=== PATIENT | male | born 1950 | race Caucasian/White ===

== ENCOUNTER 2017-03-08 21:40 | Inpatient (IN) | payer OTHER ==
[~2017-03-08] VITALS: Ht 195.6 cm; Wt 129.8 kg
[~2017-03-08 21:40] MED LIST: AMLO5TAB2 PO; HYDR25TA5 PO; LOSA50TA PO; NAPR220T95 PO
[2017-03-08 21:45] VITALS: BP 99/57; PULSE 90; RESP 19; TEMP 99.1; O2SAT 97
[2017-03-08] MEDS ORDERED: NALOXONE HCL 0.4 MG/ML AMP IV PRN (22:30)
[2017-03-08] MEDS ORDERED: ACETAMINOPHEN 325 MG TAB PO PRN ×2 (22:30)
[2017-03-08] MEDS ORDERED: SODIUM CHLORIDE 0.9% FLUSH 10 ML FLUSH IV FLUSH PRN (22:30)
[2017-03-08] MEDS ORDERED: ONDANSETRON HCL 4 MG/2 ML VIAL IVP PRN (22:30)
--- NOTE | 2017-03-08 22:44 | HHI.HP ---
[facility] No Primary Care Physician Admission Diagnosis Diagnoses: Chief Complaint: Black stools Travel History International Travel<30 Days: No Contact w/Intl Traveler <30 Da: No History of Present Illness The patient is a 66-year-old male with a past medical history of hypertension who is presenting to the hospital with black stools. The patient says that he has noticed his stools have been black in color over the past 5 days. He denies having this happen before. He went to work today and his coworkers were concerned about how pale he appeared. He was asked how he was feeling and he responded that he felt tired and weak. He was referred to the nurse who referred him to the hospital because he looked pale and had an elevated heart rate. The patient denies any abdominal pain. He has not had any nausea, vomiting or diarrhea. He says he chronically takes Aleve every day and quit taking it either Wednesday or when he discovered that Aleve might contribute to black stools. He says he takes Aleve for arthritis in the hands. He says he had a colonoscopy last year which was significant for diverticulosis. He reports his father has a history of a bleeding ulcer. He says his appetite has been normal. Review of Systems Except as stated in HPI: all other systems reviewed are Neg Past Family Social History Past Medical History Hypertension Gout Kidney stones Diverticulosis OA Past Surgical History Left inguinal hernia repair Allergies: Coded Allergies: No Known Allergies (Unverified , 03/08/17) Active Ordered Medications Current Medications Medications (Trade) Dose Ordered Sig/[place] Route Start Time Stop Time Status Last Admin (NS 1000 ml Inj) 1,000 ml @ 100 mls/hr Q10H IV 03/08/17 23:00 (NS Flush) 2 ml UNSCH PRN IV FLUSH 03/08/17 22:30 (NS Flush) 2 ml BID IV FLUSH 03/09/17 09:00 (Tylenol) 650 mg Q4H PRN PO 03/08/17 22:30 (Zofran Inj) 4 mg Q6H PRN IVP 03/08/17 22:30 (Tylenol) 650 mg Q6H PRN PO 03/08/17 22:30 (Narcan Inj) 0.4 mg UNSCH PRN IV 03/08/17 22:30 Pantoprazole Sodium 40 mg 40 mg Q12H IV PUSH 03/08/17 23:00 (KCl 20 Meq Premix Inj) 100 ml @ 50 mls/hr BOLUS ONCE IV 03/08/17 23:00 03/09/17 00:59 Family History His father had a bleeding ulcer Social History The patient does not smoke. He drinks one whiskey and soda nightly. He denies drug use. Physical Exam Vital Signs Vital Signs Date Time Temp Pulse Resp B/P Pulse Ox O2 Delivery O2 Flow Rate FiO2 03/08/17 21:45 99.1 90 19 99/57 97 Physical Exam GENERAL: This is a well-nourished, well-developed patient, in no apparent distress. SKIN: No rashes, ecchymoses or lesions. Cool and dry. Pale. HEAD: Atraumatic. Normocephalic. No temporal or scalp tenderness. EYES: Pupils equal round and reactive. Extraocular motions intact. No scleral icterus. No injection or drainage. ENT: Nose without bleeding, purulent drainage or septal hematoma. Throat without erythema, tonsillar hypertrophy or exudate. Uvula midline. Airway patent. NECK: Trachea midline. No JVD or lymphadenopathy. Supple, nontender, no meningeal signs. CARDIOVASCULAR: Regular rate and rhythm without murmurs, gallops, or rubs. RESPIRATORY: Clear to auscultation. Breath sounds equal bilaterally. No wheezes , rales, or rhonchi. GASTROINTESTINAL: Abdomen soft, non-tender, nondistended. No hepato-splenomegaly , or palpable masses. No guarding. MUSCULOSKELETAL: Extremities without clubbing, cyanosis. Trace pedal edema noted. NEUROLOGICAL: Awake and alert. Cranial nerves II through XII intact. Motor and sensory grossly within normal limits. Five out of 5 muscle strength in all muscle groups. Normal speech. PSYCH: Mood and affect appropriate. Assessment and Plan Assessment and Plan Acute GIB The pt had a hemoglobin of 6.1 upon presentation to [place]. He has had 5 days of black stools along with weakness, fatigue and pallor. He did not receive any blood products in [place]. He has a history of diverticulosis. He has been chronically taking Aleve for OA. Found to be Hemoccult positive. - 2 units red cells stat. - follow CBC every 6 hours. - PPI IV BID. - IVFs. - consult gastroenterology. - avoid NSAIDs. Hypokalemia The pt said he hasn't eaten much today. - replete with IV KCl and monitor. - telemetry. - check magnesium level. Acute hypovolemic hypotension The patient is normally hypertensive. Secondary to GI bleed. - IV fluids. - Hold home antihypertensives. - Red blood cells as above. Leukocytosis WBC 24.1 on presentation. UA unremarkable. May be a stress response. - Check a chest x-ray. - Blood cultures 2. - antibiotics if indicated. OA Chronic, affecting his hands. Quit taking Aleve when he discovered a contribute to black stools. - Avoid NSAIDs. - Tylenol as needed for pain. PPx: SCDs. Code Status Full. Discussed Condition With Pt, pt's family, nurse. Physician Certification 2 Midnight Certification Type: Admission for Inpatient Services Order for Inpatient Services The services are ordered in accordance with Medicare regulations or non- Medicare payer requirements, as applicable. In the case of services not specified as inpatient-only, they are appropriately provided as inpatient services in accordance with the 2-midnight benchmark. Estimated LOS (days): 2 days is the estimated time the patient will need to remain in the hospital, assuming treatment plan goals are met and no additional complications. Post-Hospital Plan: Home Josh Bergman DO March 08, 2017 22:43
[2017-03-08] MEDS ORDERED: POTASSIUM CHLOR 20 MEQ PREMIX 100 ML IV ONE (23:00)
[2017-03-08] MEDS ORDERED: SODIUM CHLOR 0.9% 1000 ML INJ 1,000 ML IV SCH (23:00)
[2017-03-08] MEDS ORDERED: PANTOPRAZOLE SODIUM 40 MG VIAL IV PUSH SCH (23:00)
[2017-03-08] MEDS: SODIUM CHLOR 0.45% 1000 ML INJ 1,000 ML IV SCH (23:08)
--- NOTE | 2017-03-08 23:17 | RADRPT ---
EXAM DATE/TIME: 03/08/2017 23:08 [facility] COMPARISON: No previous studies available for comparison. INDICATIONS : Shortness of breath. MEDICAL HISTORY : None. SURGICAL HISTORY : None. ENCOUNTER: Initial ACUITY: 1 day PAIN SCORE: 0/10 LOCATION: Bilateral chest FINDINGS: The lungs are clear without infiltrate, nodule, or mass except for minimal linear atelectasis left tash ng base and the left hemidiaphragm is slightly elevated. There is no appreciable pleural effusion fo r technique. Heart and mediastinum are unremarkable. There are old healed rib fractures in the right lower chest. CONCLUSION: Minimal atelectasis left lung base. Suzette Perla MD on March 08, 2017 at 23:15 Board Certified Radiologist. This report was verified electronically.
[2017-03-08 23:58] LABS: ANION GAP 8 MEQ/L (5-15); AST (GOT) 13 U/L (15-37); BICARBONATE 25.9 MEQ/L (21.0-32.0); BLOOD UREA NITROGEN 35 MG/DL (7-18); CHLORIDE 108 MEQ/L (98-107); GLOMERULAR FILTRATION RATE 81 ML/MIN (>89); MAGNESIUM 1.8 MG/DL (1.5-2.5); SODIUM (NA) 142 MEQ/L (136-145)
[2017-03-09] VITALS (21 sets, daily range): BP systolic 104–132; BP diastolic 54–68; PULSE 61–85; RESP 13–26; TEMP 97.1–98.6; O2SAT 96–98
[2017-03-09 00:01] LABS: ALKALINE PHOSPHATASE 37 U/L (45-117); ALT (GPT) 20 U/L (12-78); TOTAL BILIRUBIN ADULT 0.3 MG/DL (0.2-1.0)
[2017-03-09 05:49] LABS: MEAN CELL VOLUME 90.9 FL (80.0-100.0); MEAN CORPUSCULAR HEMOGLOBIN 30.4 PG (27.0-34.0); MEAN CORPUSCULAR HGB CONC 33.4 % (32.0-36.0); PLATELET COUNT 230 TH/MM3 (150-450); RED BLOOD COUNT 2.18 MIL/MM3 (4.50-5.90); RED CELL DISTRIBUTION WIDTH 14.4 % (11.6-17.2); WHITE BLOOD COUNT 15.7 TH/MM3 (4.0-11.0)
[2017-03-09 05:54] LABS: REVIEW FLAG FINAL
[2017-03-09 05:55] LABS: HEMATOCRIT 19.8 % (39.0-51.0)
[2017-03-09 06:20] LABS: BICARBONATE 25.7 MEQ/L (21.0-32.0); CALCIUM-PROTEIN CORRECTED 8.4 MG/DL (8.5-10.1); TOTAL BILIRUBIN ADULT 0.7 MG/DL (0.2-1.0)
[2017-03-09] MEDS ORDERED: MAGNESIUM SULFATE 1 GM PREMIX 100 ML IV ONE (07:30)
[2017-03-09] MEDS: POTASSIUM CHLOR 20 MEQ PREMIX 100 ML IV SCH ×2 (07:56→10:03)
[2017-03-09] MEDS: SODIUM CHLORIDE 0.9% FLUSH 10 ML FLUSH IV FLUSH SCH ×2 (07:57→21:01)
[2017-03-09] MEDS: SODIUM CHLOR 0.45% 1000 ML INJ 1,000 ML IV SCH ×2 (08:00→17:08)
--- NOTE | 2017-03-09 09:18 | HHI.PR ---
Subjective Remarks Follow-up GI bleed 03/09/17-patient seen and examined, now receiving blood transfusion 3#4. Currently nothing by mouth. BP soft. Denies any shortness of breath or chest pain. Objective Vitals Vital Signs Date Time Temp Pulse Resp B/P Pulse Ox O2 Delivery O2 Flow Rate FiO2 03/09/17 07:46 98 03/09/17 06:35 98.2 69 20 110/54 97 03/09/17 06:00 69 03/09/17 04:00 97.1 81 19 104/57 98 03/09/17 04:00 61 03/09/17 02:45 98.5 71 19 118/55 97 03/09/17 02:00 76 03/09/17 00:25 98.6 84 18 118/55 98 03/09/17 00:22 97 21 03/09/17 00:00 98.6 81 20 112/56 98 03/09/17 00:00 81 03/08/17 21:45 99.1 90 19 99/57 97 03/08/17 21:45 90 I/O 03/08/17 03/08/17 03/08/17 03/09/17 03/09/17 03/09/17 07:00 15:00 23:00 07:00 15:00 23:00 Intake Total 1963 ml Output Total 1000 ml Balance 963 ml Intake IV Total 1463 ml Packed Cells 500 ml Output Urine Total 1000 ml Result Diagram: 03/09/17 0443 03/09/17 0443 Imaging Last Impressions Chest X-Ray 03/08/17 0000 Signed Impressions: Service Date/Time: Wednesday, March 08, 2017 23:08 - CONCLUSION: Minimal atelectasis left lung base. K. Wisam Perla MD Objective Remarks GENERAL: NAD SKIN: Warm and dry. HEAD: Normocephalic. EYES: No scleral icterus. No injection or drainage. NECK: Supple, trachea midline. No JVD or lymphadenopathy. CARDIOVASCULAR: Regular rate and rhythm without murmurs, gallops, or rubs. RESPIRATORY: Breath sounds equal bilaterally. No accessory muscle use. GASTROINTESTINAL: Abdomen soft, non-tender, nondistended. MUSCULOSKELETAL: No cyanosis, or edema. BACK: Nontender without obvious deformity. No CVA tenderness. A/P Problem List: (1) GI bleeding ICD Code: K92.2 Status: Acute (2) Normochromic normocytic anemia ICD Code: D64.9 Status: Acute (3) Anemia due to blood loss, acute ICD Code: D62 Status: Acute (4) Hypotension due to blood loss ICD Code: I95.89 Status: Acute (5) Leukocytosis ICD Code: D72.829 Status: Acute Assessment and Plan 66-year-old man with GI bleed Normochromic normocytic anemia Anemia due to blood loss, acute Gastroenterology consultation pending for evaluation for panendoscopy Continue with transfusion of packed red blood cell and monitor H&H as well as platelets Start Protonix drip instead Avoid NSAID Hypovolemic Hypotension due to blood loss BP improving Continue with blood transfusions as in above Continue with IV fluid hydration as well Hold all oral hypertensive medications Leukocytosis Stress reactive secondary to above blood loss Hypokalemia Replace electrolyte and monitor OA Chronic, affecting his hands. Quit taking Aleve when he discovered a contribute to black stools. - Avoid NSAIDs. - Tylenol as needed for pain. DVT prophylaxis: Chemical anti-prophylaxis is contraindicated, bilateral SCDs GI prophylaxis: PPI Total critical care time spent over 35 minutes Alfred Zapata MD March 09, 2017 09:17
[2017-03-09] MEDS: PANTOPRAZOLE INJ 80 MG in SODIUM CHLORIDE 0.9% INJ 100 ML IV SCH ×2 (10:00→19:23)
--- NOTE | 2017-03-09 10:44 | PD.CONS ---
HPI History of Present Illness This is a 66 year old male who presented to the emergency room and [facility] for melena and severe generalized weakness. He has a history of osteoarthritis and takes 2 Aleve every morning. About 5-6 days ago he started having black tarry stools. He denies any nausea, vomiting, heartburn, reflux, abdominal pain, hematochezia, or abnormal weight loss. She noticed on Wednesday that he was feeling more tired than usual. Yesterday he reports his skin color was very pale and that he had severe generalized weakness with shortness of breath on minimal exertion. He reports that this improved with rest. He went to the ER and was found to have severe anemia with an H&H of 6.6/19.8. He was transferred to [facility] and transfused 3 units of packed red blood cells. He is currently in the ISC unit, but medically stable at this time. He denies any history of peptic ulcer disease. He has never had an upper endoscopy. He did have a colonoscopy in May, at which time he was told that he had diverticulosis but no colon polyps. He does not recall the physician's name. There is no family history of esophageal, gastric, or colorectal cancer. He does drink 1-2 whiskeys nightly. (Mary Lou Harman) PFSH Past Medical History Hypertension Gout Kidney stones Diverticulosis OA Past Surgical History Left inguinal hernia repair Lithotripsy Colonoscopy (Mary Lou Harman) Coded Allergies: No Known Allergies (Unverified , 03/08/17) Medications Allergies Coded Allergies Type Severity Reaction Last Updated Verified No Known Allergies 03/08/17 No Active Scripts Medications Dose Route/Sig Days Date Category Aleve (Naproxen Sodium) 220 Mg Tab 220 Mg PO DAILY PRN 03/08/17 Reported Hydrochlorothiazide 25 Mg Tab 25 Mg PO DAILY 03/08/17 Reported Losartan (Losartan Potassium) 50 Mg Tab 50 Mg PO DAILY 03/08/17 Reported Amlodipine (Amlodipine Besylate) 5 Mg Tab 5 Mg PO DAILY 03/08/17 Reported Family History Father had tumor removed from his neck, htn, CVA. Mother had recurrent diverticulitis, htn Social History The patient does not smoke. He drinks 1-2 whiskey and soda nightly. He denies drug use. (Mary Lou Harman) Review of Systems Constitutional: COMPLAINS OF: Diaphoretic episodes, Fatigue, DENIES: Fever, Weight loss, Chills, Change in appetite Respiratory: COMPLAINS OF: Shortness of breath, DENIES: Cough Cardiovascular: DENIES: Chest pain Gastrointestinal: COMPLAINS OF: Black stools, DENIES: Abdominal pain, Bloody stools, Constipation, Diarrhea, Nausea, Vomiting, Anorexia, Swelling of Abdomen , Heartburn, Hematemesis Musculoskeletal: DENIES: Joint pain Integumentary: DENIES: Abnormal pigmentation Hematologic/lymphatic: DENIES: Bruising Immunologic/allergic: DENIES: Eczema Neurologic: DENIES: Headache Psychiatric: DENIES: Confusion (Mary Lou Harman) GI Exam Vitals I&O Vital Signs Date Time Temp Pulse Resp B/P Pulse Ox O2 Delivery O2 Flow Rate FiO2 03/09/17 08:35 98.0 80 24 113/62 98 03/09/17 08:20 98.0 78 22 126/59 98 03/09/17 07:46 98 03/09/17 07:00 98 Room Air 03/09/17 06:35 98.2 69 20 110/54 97 03/09/17 06:00 69 03/09/17 04:00 97.1 81 19 104/57 98 03/09/17 04:00 61 03/09/17 02:45 98.5 71 19 118/55 97 03/09/17 02:00 76 03/09/17 00:25 98.6 84 18 118/55 98 03/09/17 00:22 97 21 03/09/17 00:00 98.6 81 20 112/56 98 03/09/17 00:00 81 03/08/17 21:45 99.1 90 19 99/57 97 03/08/17 21:45 90 I/O 03/08/17 03/08/17 03/08/17 03/09/17 03/09/17 03/09/17 07:00 15:00 23:00 07:00 15:00 23:00 Intake Total 1963 ml Output Total 1000 ml Balance 963 ml Intake IV Total 1463 ml Packed Cells 500 ml Output Urine Total 1000 ml Imaging Last Impressions Chest X-Ray 03/08/17 0000 Signed Impressions: Service Date/Time: Wednesday, March 08, 2017 23:08 - CONCLUSION: Minimal atelectasis left lung base. Suzette Perla MD Laboratory Test 03/08/17 03/09/17 03/09/17 03/09/17 23: 00:00 01:00 04:43 Sodium Level 142 MEQ/L 142 MEQ/L Potassium Level 3.0 MEQ/L 3.0 MEQ/L Chloride Level 108 MEQ/L 108 MEQ/L Carbon Dioxide Level 25.9 MEQ/L 25.7 MEQ/L Anion Gap 8 MEQ/L 8 MEQ/L Blood Urea Nitrogen 35 MG/DL 29 MG/DL Creatinine 0.94 MG/DL 0.98 MG/DL Estimat Glomerular Filtration 81 ML/MIN 77 ML/MIN Rate Random Glucose 112 MG/DL 105 MG/DL Calcium Level 7.5 MG/DL 7.2 MG/DL Magnesium Level 1.8 MG/DL Total Bilirubin 0.3 MG/DL 0.7 MG/DL Aspartate Amino Transf 13 U/L 14 U/L (AST/SGOT) Alanine Aminotransferase 20 U/L 21 U/L (ALT/SGPT) Alkaline Phosphatase 37 U/L 40 U/L Total Protein 4.9 GM/DL 4.9 GM/DL Albumin 2.3 GM/DL 2.4 GM/DL Nasal Screen MRSA (PCR) MRSA NOT DETECTED Blood Type A POSITIVE Crossmatch Leukocyte-Reduced Red Blood Cells Blood Bank Comment White Blood Count 15.7 TH/MM3 Red Blood Count 2.18 MIL/MM3 Hemoglobin 6.6 GM/DL Hematocrit 19.8 % Mean Corpuscular Volume 90.9 FL Mean Corpuscular Hemoglobin 30.4 PG Mean Corpuscular Hemoglobin 33.4 % Concent Red Cell Distribution Width 14.4 % Platelet Count 230 TH/MM3 Mean Platelet Volume 8.7 FL Protein Corrected Calcium 8.4 MG/DL Test 03/09/17 05:59 Crossmatch Leukocyte-Reduced Red Blood Cells Blood Bank Comment Date/Time Procedure Status Source Growth 03/09/17 04:54 Aerobic Blood Culture Received Blood Peripheral Pending 03/09/17 04:54 Anaerobic Blood Culture Received Blood Peripheral Pending Physical Examination HEENT: Normocephalic; atraumatic; no jaundice. CHEST: CTA CARDIAC: RRR ABDOMEN: Soft, nondistended, nontender; no hepatosplenomegaly; bowel sounds are present in all four quadrants. EXTREMITIES: No clubbing, cyanosis, or edema. SKIN: Normal; no rash; no jaundice. SMOKE INSPECTOR: No focal deficits; alert and oriented times three. (Mary Lou Harman) Assessment and Plan Plan ASSESSMENT: - Upper GIB, Melena. (+) NSAID use, taking 2 Aleve daily for arthritic pain. 1 -2 ETOH drinks per night. No hx of PUD. 5-6 day hx of black tarry stools with no other GI symptoms, but generalized weakness/ SOB yesterday. Never had an EGD. Last colonoscopy was in May (diverticulosis, no polyps, does not recall the doctor's name). HH 6.6/19.8. S/P 3 units of PRBC. Rpt. HH pending. NPO. Protonix Gtt. - Severe anemia, acute blood loss. HH 6.6/19.8. S/P 3 units of PRBC. Rpt. HH pending. Protonix Gtt. - HTN, OA, per primary PLAN: - Plan for egd today - Obtain consents - NPO - Protonix Gtt - H/H now - CBC in am - No NSAIDS - Further recommendations to follow based on results of above - Pt seen and examined by Dr. Herzog and myself and this note is written on his behalf (Mary Lou Harman) Physician Comments Patient seen and examined Agree with above Continue with current supportive care Monitor labs We will proceed with an EGD next Further recommendations shall depend on his findings (Imer Herzog MD) Mary Lou Harman March 09, 2017 10:44 Imer Herzog MD March 09, 2017 13:32
[2017-03-09 12:50] LABS: HEMATOCRIT 23.5 % (39.0-51.0); MEAN CELL VOLUME 89.8 FL (80.0-100.0); MEAN CORPUSCULAR HEMOGLOBIN 31.2 PG (27.0-34.0); MEAN CORPUSCULAR HGB CONC 34.8 % (32.0-36.0); PLATELET COUNT 213 TH/MM3 (150-450); RED BLOOD COUNT 2.62 MIL/MM3 (4.50-5.90); RED CELL DISTRIBUTION WIDTH 14.4 % (11.6-17.2); WHITE BLOOD COUNT 14.5 TH/MM3 (4.0-11.0)
[2017-03-09 12:59] LABS: REVIEW FLAG FINAL
[2017-03-09] MEDS ORDERED: PROPOFOL 200 MG/20 ML AMP IV ONE (13:16)
--- NOTE | 2017-03-09 13:35 | PD.PROCEDR ---
GI Procedure REFERRING PHYSICIAN ESTHER PROCEDURE PERFORMED EGD INDICATION FOR PROCEDURE Melena, anemia PROCEDURE: The procedure, risks and benefits were discussed with Mr. Segovia and informed consent was obtained. Anesthesia sedated him with Diprivan. He was placed in the left lateral decubitus position. EGD: The Pentax videoscope was introduced through the oropharynx and advanced to the second portion of the duodenum under direct visualization. Retroflexion was performed in the stomach. FINDINGS: The esophagus this was normal The stomach this was normal The duodenum there was some mild patchy erythema in the duodenal bulb but no ulcerations or erosions and the rest of the duodenum was unremarkable ESTIMATED BLOOD LOSS: None SPECIMENS REMOVED: None COMPLICATIONS: None IMPRESSION: Mild duodenitis Otherwise unremarkable EGD PLAN: Continue with current supportive care Plan for colonoscopy tomorrow Imer Herzog MD March 09, 2017 13:35
[2017-03-09] MEDS ORDERED: PEG (High)/E-LYTE SOLN 4000 ML BTL PO ONE (13:45)
[2017-03-09 17:33] LABS: HEMATOCRIT 23.8 % (39.0-51.0); MEAN CELL VOLUME 90.9 FL (80.0-100.0); MEAN CORPUSCULAR HEMOGLOBIN 30.5 PG (27.0-34.0); MEAN CORPUSCULAR HGB CONC 33.5 % (32.0-36.0); PLATELET COUNT 223 TH/MM3 (150-450); RED BLOOD COUNT 2.62 MIL/MM3 (4.50-5.90); RED CELL DISTRIBUTION WIDTH 14.4 % (11.6-17.2); REVIEW FLAG FINAL; WHITE BLOOD COUNT 14.2 TH/MM3 (4.0-11.0)
[2017-03-09 22:47] LABS: HEMATOCRIT 25.9 % (39.0-51.0); MEAN CELL VOLUME 91.6 FL (80.0-100.0); MEAN CORPUSCULAR HGB CONC 33.8 % (32.0-36.0); PLATELET COUNT 244 TH/MM3 (150-450); RED BLOOD COUNT 2.83 MIL/MM3 (4.50-5.90); RED CELL DISTRIBUTION WIDTH 14.7 % (11.6-17.2); REVIEW FLAG FINAL; WHITE BLOOD COUNT 14.7 TH/MM3 (4.0-11.0)
[2017-03-10] VITALS (9 sets, daily range): BP systolic 127–146; BP diastolic 65–77; PULSE 70–84; RESP 19–23; TEMP 98.1–98.3; O2SAT 93–98
[2017-03-10 04:18] LABS: MEAN CELL VOLUME 90.6 FL (80.0-100.0); MEAN CORPUSCULAR HEMOGLOBIN 31.7 PG (27.0-34.0); PLATELET COUNT 217 TH/MM3 (150-450); RED BLOOD COUNT 2.54 MIL/MM3 (4.50-5.90); RED CELL DISTRIBUTION WIDTH 14.8 % (11.6-17.2); REVIEW FLAG FINAL; WHITE BLOOD COUNT 13.4 TH/MM3 (4.0-11.0)
[2017-03-10] MEDS: SODIUM CHLOR 0.45% 1000 ML INJ 1,000 ML IV SCH ×2 (04:34→13:40)
[2017-03-10] MEDS: PANTOPRAZOLE INJ 80 MG in SODIUM CHLORIDE 0.9% INJ 100 ML IV SCH (04:35)
[2017-03-10 04:56] LABS: POTASSIUM 3.3 MEQ/L (3.5-5.1)
[2017-03-10] MEDS: SODIUM CHLORIDE 0.9% FLUSH 10 ML FLUSH IV FLUSH SCH (08:15)
--- NOTE | 2017-03-10 09:17 | HHI.PR ---
Subjective Remarks Follow-up GI bleed 03/09/17-patient seen and examined, now receiving blood transfusion 3#4. Currently nothing by mouth. BP soft. Denies any shortness of breath or chest pain. 03/10/17-patient seen and examined, status post EGD with finding of duodenitis. Currently nothing by mouth pending colonoscopy. H&H stable and patient denies any GI bleed. Objective Vitals Vital Signs Date Time Temp Pulse Resp B/P Pulse Ox O2 Delivery O2 Flow Rate FiO2 03/10/17 08:07 98 03/10/17 08:00 74 03/10/17 08:00 98.3 72 19 136/66 98 03/10/17 07:00 98 Room Air 03/10/17 06:00 70 03/10/17 04:00 98.2 76 20 127/65 97 03/10/17 04:00 76 03/10/17 02:00 77 03/10/17 00:00 81 03/10/17 00:00 98.1 81 23 128/67 96 03/09/17 22:00 84 03/09/17 21:11 97 03/09/17 20:00 72 03/09/17 20:00 98.3 72 22 111/67 96 03/09/17 19:00 97 Room Air 03/09/17 18:20 75 03/09/17 16:08 85 03/09/17 16:08 97.7 85 13 132/68 98 03/09/17 14:09 71 03/09/17 12:12 98.2 72 24 127/58 97 03/09/17 12:12 72 03/09/17 11:00 71 03/09/17 10:00 73 I/O 03/09/17 03/09/17 03/09/17 03/10/17 03/10/17 03/10/17 07:00 15:00 23:00 07:00 15:00 23:00 Intake Total 1963 ml 1518 ml 3404 ml 835 ml Output Total 1000 ml 825 ml 1400 ml Balance 963 ml 693 ml 2004 ml 835 ml Intake Oral 2442 ml IV Total 1463 ml 918 ml 962 ml 835 ml Packed Cells 500 ml 600 ml Output Urine Total 1000 ml 825 ml 1400 ml # Voids 6 # Bowel Movements 2 6 Result Diagram: 03/10/17 0353 03/10/17 0353 Imaging Last Impressions Chest X-Ray 03/08/17 0000 Signed Impressions: Service Date/Time: Wednesday, March 08, 2017 23:08 - CONCLUSION: Minimal atelectasis left lung base. KElizabeth Perla MD Objective Remarks GENERAL: NAD SKIN: Warm and dry. HEAD: Normocephalic. EYES: No scleral icterus. No injection or drainage. NECK: Supple, trachea midline. No JVD or lymphadenopathy. CARDIOVASCULAR: Regular rate and rhythm without murmurs, gallops, or rubs. RESPIRATORY: Breath sounds equal bilaterally. No accessory muscle use. GASTROINTESTINAL: Abdomen soft, non-tender, nondistended. MUSCULOSKELETAL: No cyanosis, or edema. BACK: Nontender without obvious deformity. No CVA tenderness. A/P Problem List: (1) GI bleeding ICD Code: K92.2 Status: Acute (2) Normochromic normocytic anemia ICD Code: D64.9 Status: Acute (3) Anemia due to blood loss, acute ICD Code: D62 Status: Acute (4) Hypotension due to blood loss ICD Code: I95.89 Status: Acute (5) Leukocytosis ICD Code: D72.829 Status: Acute Assessment and Plan 66-year-old man with GI bleed Normochromic normocytic anemia Anemia due to blood loss, acute Gastroenterology ff Status post EGD 03/09/17 with finding of duodenitis Plan for colonoscopy today 03/10/17 s/p 4 units packed red blood cell transfused and monitor H&H Continue Protonix drip Avoid NSAID Hypovolemic Hypotension due to blood loss-resolved Transfused 4 units packed red blood cell on 03/09/17 Continue with IV fluid hydration as well Hold all oral hypertensive medications Leukocytosis Stress reactive secondary to above blood loss Hypokalemia Replace electrolyte and monitor OA Chronic, affecting his hands. Quit taking Aleve when he discovered a contribute to black stools. - Avoid NSAIDs. - Tylenol as needed for pain. DVT prophylaxis: Chemical anti-prophylaxis is contraindicated, bilateral SCDs GI prophylaxis: PPI Transfer to [facility] and likely discharge home if colonoscopy negative Alfred Zapata MD March 10, 2017 09:17
[2017-03-10] MEDS ORDERED: PROPOFOL 200 MG/20 ML AMP IV ONE (10:16)
--- NOTE | 2017-03-10 10:42 | PD.PROCEDR ---
GI Procedure REFERRING PHYSICIAN tangela PROCEDURE PERFORMED Colonoscopy INDICATION FOR PROCEDURE Anemia possible GI bleed PROCEDURE: The procedure, risks and benefits were discussed with Mr. Segovia and informed consent was obtained. Anesthesia sedated him with Diprivan. He was placed in the left lateral decubitus position. Colonoscopy: The Pentax videoscope was introduced through the rectum and advanced to cecum where the ileocecal valve and appendiceal orifice were identified. Retroflexion was performed in the rectum. Colonic prep was fair FINDINGS: Colonic withdrawal time greater than 6 minutes as the scope was slowly withdrawn colonic mucosa was carefully inspected this was noted to be unremarkable and within normal limits the whole way through the patient was noted to have mild diverticulosis of the sigmoid region retroflexion in the rectum and rectal examination were unremarkable ESTIMATED BLOOD LOSS: None SPECIMENS REMOVED: None COMPLICATIONS: None IMPRESSION: Colonic diverticulosis Otherwise unremarkable colonoscopy PLAN: High-fiber diet Recommend small bowel follow-through if negative then patient will require capsule endoscopy Continue present supportive care Imer Herzog MD March 10, 2017 10:42
[2017-03-10] MEDS ORDERED: MAGNESIUM CITRATE SOLN 300 ML BTL PO ONE ×2 (12:00→18:00)
[2017-03-10] MEDS ORDERED: POTASSIUM CHLORIDE 20 MEQ CONTROLLED RELEASE TAB PO ONE (13:00)
--- NOTE | 2017-03-10 13:24 | RADRPT ---
EXAM DATE/TIME: 03/10/2017 11:12 [facility] COMPARISON: No previous studies available for comparison. INDICATIONS : Anemia. FLUORO TIME: 1.1 minutes IMAGE COUNT: 24 CONTRAST: Entero Vu 24% Barium Sulfate (24% w/v, 20% w/w) IMAGING TIME(S): 15 min, 30 min, 45 min, 1 hr, 1.5 hrs MEDICAL HISTORY : None. SURGICAL HISTORY : Inguinal hernia repair. ENCOUNTER: Initial ACUITY: 2 days PAIN SCORE: 0/10 LOCATION: Bilateral abdomen. FINDINGS: Preliminary film demonstrates a nonobstructive bowel gas pattern. A 1.6 cm calculus is suspected in t he region of the left kidney.. The stomach is grossly unremarkable. Examination of the small bowel demonstrates normal mucosal pattern involving the jejunum and ileum. Scattered jejunal diverticuli are present. There is no evidence of mass or obstruction. No intralumi nal filling defects are identified. Small bowel transit time is normal at 60 minutes. Fluoroscopy o f the abdomen and terminal ileum demonstrates no abnormality. CONCLUSION: A few jejunal diverticuli are noted otherwise unremarkable small bowel series. Doug Morales MD on March 10, 2017 at 13:20 Board Certified Radiologist. This report was verified electronically.
[2017-03-10] MEDS: BISACODYL EC 5 MG TABEC PO SCH (13:43)
[2017-03-10] MEDS ORDERED: PANTOPRAZOLE INJ 80 MG in SODIUM CHLORIDE 0.9% INJ 100 ML IV SCH (14:00)
[2017-03-10] MEDS ORDERED: PROT40TA PO (17:03)
--- NOTE | 2017-03-10 17:05 | HHI.PR ---
Addendum to Inpatient Note Addendum Reason: Additional Documentation Additional Information He had colonoscopy with finding of colonic diverticulosis otherwise unremarkable. He had follow-up small bowel follow-through with finding of a few jejunal diverticuli otherwise unremarkable therefore patient will be discharged home on Protonix 40 mg daily Alfred Zapata MD March 10, 2017 17:05
--- NOTE | 2017-03-10 17:07 | HHI.DS ---
Discharge Summary Admission Date March 08, 2017 at 21:45 Discharge Date: March 10, 2017 Admitting Diagnosis (1) GI bleeding ICD Code: K92.2 (2) Normochromic normocytic anemia ICD Code: D64.9 (3) Anemia due to blood loss, acute ICD Code: D62 (4) Hypotension due to blood loss ICD Code: I95.89 (5) Leukocytosis ICD Code: D72.829 Procedures none Brief History - From Admission The patient is a 66-year-old male with a past medical history of hypertension who is presenting to the hospital with black stools. The patient says that he has noticed his stools have been black in color over the past 5 days. He denies having this happen before. He went to work today and his coworkers were concerned about how pale he appeared. He was asked how he was feeling and he responded that he felt tired and weak. He was referred to the nurse who referred him to the hospital because he looked pale and had an elevated heart rate. The patient denies any abdominal pain. He has not had any nausea, vomiting or diarrhea. He says he chronically takes Aleve every day and quit taking it either Wednesday or when he discovered that Aleve might contribute to black stools. He says he takes Aleve for arthritis in the hands. He says he had a colonoscopy last year which was significant for diverticulosis. He reports his father has a history of a bleeding ulcer. He says his appetite has been normal. CBC/BMP: 03/10/17 0353 03/10/17 0353 Significant Findings Laboratory Tests Test 03/08/17 03/09/17 03/09/17 03/09/17 23:17 04:43 12:21 17:21 Potassium Level 3.0 MEQ/L 3.0 MEQ/L (3.5-5.1) (3.5-5.1) Chloride Level 108 MEQ/L 108 MEQ/L (98-107) (98-107) Blood Urea Nitrogen 35 MG/DL (7-18) 29 MG/DL (7-18) Estimat Glomerular Filtration 81 ML/MIN (>89) 77 ML/MIN (>89) Rate Random Glucose 112 MG/DL (74-106) Calcium Level 7.5 MG/DL 7.2 MG/DL (8.5-10.1) (8.5-10.1) Aspartate Amino Transf 13 U/L (15-37) 14 U/L (15-37) (AST/SGOT) Alkaline Phosphatase 37 U/L (45-117) 40 U/L (45-117) Total Protein 4.9 GM/DL 4.9 GM/DL (6.4-8.2) (6.4-8.2) Albumin 2.3 GM/DL 2.4 GM/DL (3.4-5.0) (3.4-5.0) White Blood Count 15.7 TH/MM3 14.5 TH/MM3 14.2 TH/MM3 (4.0-11.0) (4.0-11.0) (4.0-11.0) Red Blood Count 2.18 MIL/MM3 2.62 MIL/MM3 2.62 MIL/MM3 (4.50-5.90) (4.50-5.90) (4.50-5.90) Hemoglobin 6.6 GM/DL 8.2 GM/DL 8.0 GM/DL (13.0-17.0) (13.0-17.0) (13.0-17.0) Hematocrit 19.8 % 23.5 % 23.8 % (39.0-51.0) (39.0-51.0) (39.0-51.0) Protein Corrected Calcium 8.4 MG/DL (8.5-10.1) Test 03/09/17 03/10/17 22:33 03:53 White Blood Count 14.7 TH/MM3 13.4 TH/MM3 (4.0-11.0) (4.0-11.0) Red Blood Count 2.83 MIL/MM3 2.54 MIL/MM3 (4.50-5.90) (4.50-5.90) Hemoglobin 8.8 GM/DL 8.1 GM/DL (13.0-17.0) (13.0-17.0) Hematocrit 25.9 % 23.0 % (39.0-51.0) (39.0-51.0) Sodium Level 147 MEQ/L (136-145) Potassium Level 3.3 MEQ/L (3.5-5.1) Chloride Level 114 MEQ/L (98-107) Estimat Glomerular Filtration 82 ML/MIN (>89) Rate Calcium Level 7.5 MG/DL (8.5-10.1) PE at Discharge GENERAL: NAD SKIN: Warm and dry. HEAD: Normocephalic. EYES: No scleral icterus. No injection or drainage. NECK: Supple, trachea midline. No JVD or lymphadenopathy. CARDIOVASCULAR: Regular rate and rhythm without murmurs, gallops, or rubs. RESPIRATORY: Breath sounds equal bilaterally. No accessory muscle use. GASTROINTESTINAL: Abdomen soft, non-tender, nondistended. MUSCULOSKELETAL: No cyanosis, or edema. BACK: Nontender without obvious deformity. No CVA tenderness. Hospital Course Patient was admitted secondary to GI bleed for which he was transfused a total of 4 units PRBC with consultation to gastroenterology for which He underwent panendoscopy. He was also treated with Protonix drip. A follow-up small bowel follow-through was obtained. The blood pressure improved with IV fluid hydration along with blood transfusion. DVT and GI prophylaxis were provided. Prior to discharge, patient condition improved and vitals remained stable. Pt Condition on Discharge: Stable Discharge Disposition: Discharge Home Discharge Time: <= 30 minutes Discharge Instructions DIET: Follow Instructions for: Heart Healthy Diet Activities you can perform: Regular-No Restrictions Follow up Referrals: Gastroenterology PCP Follow-up - 1 Week New Medications: Pantoprazole (Protonix) 40 Mg Tab 40 MG PO DAILY Reflux #30 Ref 0 TAB Continued Medications: Amlodipine (Amlodipine) 5 Mg Tab 5 MG PO DAILY Blood Pressure Management Ref 0 TAB Hydrochlorothiazide (Hydrochlorothiazide) 25 Mg Tab 25 MG PO DAILY Ref 0 TAB Losartan (Losartan) 50 Mg Tab 50 MG PO DAILY Blood Pressure Management Ref 0 TAB Discontinued Medications: Naproxen Sodium (Aleve) 220 Mg Tab 220 MG PO DAILY PRN PAIN SCALE 1 TO 10 Ref 0 TAB Alfred Zapata MD March 10, 2017 17:07
== END 2017-03-10 17:39 | disposition home or self-care (01) | DRG 378 ==
LOC: NEDDLT 21:40 → N03B 21:45
PROVIDERS: ADMIT Hospitalist; ATTEND Hospitalist
PROC: 30233N1 Transfusion of Nonautologous Red Blood Cells into Peripheral Vein, Percutaneous Approach (ICD-10-PCS; 2017-03-09)
PROC: 0DJ08ZZ Inspection of Upper Intestinal Tract, Via Natural or Artificial Opening Endoscopic (ICD-10-PCS; principal; 2017-03-09 12:55)
PROC: 0DJD8ZZ Inspection of Lower Intestinal Tract, Via Natural or Artificial Opening Endoscopic (ICD-10-PCS; 2017-03-10)
DX: K92.1 Melena (principal); D62 Acute posthemorrhagic anemia; I10 Essential (primary) hypertension; M10.9 Gout, unspecified; M19.90 Unspecified osteoarthritis, unspecified site; E87.6 Hypokalemia; E86.1 Hypovolemia; D64.9 Anemia, unspecified
CPT/HCPCS: 36430; 71010; 74250; 80048; 80053; 81001; 82140; 82272; 82948; 83690; 83735; 85007; 85027; 85610; 86850; 86900; 86901; 86920; 87040; 87641; 96361; 96374; 96375; C9113; J3475; J3480; J7030; P9016